=== PATIENT | female | born 1990 | race African-American/Black ===

== ENCOUNTER 2019-03-29 12:32 | Emergency (ER) | payer BC ==
[~2019-03-29] VITALS: Ht 152.4 cm; Wt 118.2 kg
[2019-03-29] MEDS ORDERED: CARV25 PO (13:16)
[2019-03-29] MEDS ORDERED: LEVE500T53 PO ×2 (13:16)
[2019-03-29] MEDS ORDERED: LevETIRAcetam 1,000 MG in DEXTROSE 5%-WATER 100 ML IV ONE (13:30)
[2019-03-29] MEDS ORDERED: CHL25 PO (13:44)
[2019-03-29] MEDS ORDERED: LISI-662 PO (13:44)
[2019-03-29] MEDS ORDERED: LACO100 PO (13:44)
[2019-03-29] MEDS ORDERED: ZONI100 PO (13:44)
[2019-03-29] MEDS ORDERED: ESCI10TA PO (13:44)
[2019-03-29 14:30] VITALS: BP 159/97
== END 2019-03-29 14:44 | disposition home or self-care (01) ==
LOC: EMS 12:34
DX: G40.909 Epilepsy, unspecified, not intractable, without status epilepticus (principal); I10 Essential (primary) hypertension; F32.9 Major depressive disorder, single episode, unspecified
CPT/HCPCS: 82962; 96365; 99283; J0712; J7060

== ENCOUNTER 2019-04-07 17:29 | Emergency (ER) | payer BC ==
[~2019-04-07] VITALS: Ht 160 cm; Wt 136.4 kg
[~2019-04-07 17:29] MED LIST: CARV25 PO; CHL25 PO; ESCI10TA PO; LACO100 PO; LEVE500T53 PO; LISI-662 PO; ZONI100 PO
[2019-04-07 18:02] VITALS: BP 162/110
== END 2019-04-07 19:26 | disposition left against medical advice (07) ==
LOC: EMS 17:30
DX: G40.909 Epilepsy, unspecified, not intractable, without status epilepticus (principal); I10 Essential (primary) hypertension; F32.9 Major depressive disorder, single episode, unspecified; Z79.899 Other long term (current) drug therapy